=== PATIENT | female | born 2000 | race Caucasian/White ===

== ENCOUNTER 2021-04-18 18:32 | Emergency (ER) | payer OTHER ==
[2021-04-19] MEDS ORDERED: NORFLEX 100 MG100 MG PO (00:49)
[2021-04-19] MEDS ORDERED: LODINE CAP 300300 MG PO (00:49)
== END 2021-04-19 01:35 | disposition home or self-care (01) ==
LOC: ER1 18:32 → EDBD 18:32 → ER1 04-19 01:35
DX: S29.012A Strain of muscle and tendon of back wall of thorax, initial encounter (principal); S39.012A Strain of muscle, fascia and tendon of lower back, initial encounter; F17.210 Nicotine dependence, cigarettes, uncomplicated; Z88.0 Allergy status to penicillin; Z88.5 Allergy status to narcotic agent; Z88.8 Allergy status to other drugs, medicaments and biological substances; X50.0XXA Overexertion from strenuous movement or load, initial encounter
CPT/HCPCS: 72128; 72131; 81001; 84703; 87086; 99284